=== PATIENT | male | born 1990 | race African-American/Black ===

== ENCOUNTER 2016-08-21 17:12 | Emergency (ER) | payer SELFPAY ==
[~2016-08-21] VITALS: Ht 170.2 cm; Wt 67.0 kg
[~2016-08-21 17:12] MED LIST: BACT800T5 PO; CEPH500C3 PO
[2016-08-21 17:13] VITALS: BP 129/65; PULSE 104; RESP 16; TEMP 98.2; O2SAT 99
[2016-08-21] MEDS ORDERED: PENI500T PO (17:36)
[2016-08-21] MEDS ORDERED: IBUP-232 PO (17:36)
--- NOTE | 2016-08-21 17:36 | PD ---
HPI Chief Complaint: Oral / Dental Pain or Problem Time Seen by Provider: 17:29 Travel History International Travel<30 days: No Contact w/Intl Traveler<30days: No Traveled to known affect area: No History of Present Illness HPI 25-year-old male complains of dental pain. Patient states that started having sharp pain vocalized upper gum for the past several days. Patient denies any fever chills. Patient denies any coughing congestion. PFSH Past Medical History ADHD: Yes Bipolar Disorder: Yes (IN HX FROM PREVIOUS VISIT; PT DENIES AT THIS TIME) Cancer: No Diabetes: No Diminished Hearing: No Musculoskeletal: Yes (Back pain ) Psychiatric: Yes (BIPOLAR) Immunizations Current: Yes Migraines: No Seizures: No Thyroid Disease: No Ulcer: No ?: Not Past Surgical History Appendectomy: No Cholecystectomy: No Social History Alcohol Use: Yes (Occasional ) Tobacco Use: Yes (1 PPD) Substance Use: No Allergies-Medications (Allergen,Severity, Reaction): Coded Allergies: No Known Allergies (Verified , 08/21/16) Reported Meds & Prescriptions Reported Meds & Active Scripts Active Keflex (Cephalexin Monohydrate) 500 Mg Cap 500 Mg PO QID Bactrim DS (Sulfamethoxazole-Trimethoprim DS) 1 Tab Tab 1 Tab PO BID 7 Days Review of Systems General / Constitutional: No: Fever Eyes: No: Visual changes HENT: No: Headaches Cardiovascular: No: Chest Pain or Discomfort Respiratory: No: Shortness of Breath Gastrointestinal: No: Abdominal Pain Genitourinary: No: Dysuria Musculoskeletal: No: Pain Skin: No Rash Neurologic: No: Weakness Psychiatric: No: Depression Endocrine: No: Polydipsia Hematologic/Lymphatic: No: Easy Bruising Physical Exam Narrative GENERAL: Well-nourished, well-developed patient. SKIN: Focused skin assessment warm/dry. HEAD: Normocephalic. EYES: No scleral icterus. No injection or drainage. NECK: Supple, trachea midline. No JVD or lymphadenopathy. CARDIOVASCULAR: Regular rate and rhythm without murmurs, gallops, or rubs. RESPIRATORY: Breath sounds equal bilaterally. No accessory muscle use. GASTROINTESTINAL: Abdomen soft, non-tender, nondistended. MUSCULOSKELETAL: No cyanosis, or edema. BACK: Nontender without obvious deformity. No CVA tenderness. Patient has 2 missing teeth on the upper gum area with tenderness on palpation of the gum. No soft tissue swelling noted. Data Data Last Documented VS Vital Signs Date Time Temp Pulse Resp B/P Pulse Ox O2 Delivery O2 Flow Rate FiO2 08/21/16 17:13 98.2 104 16 129/65 99 MDM Medical Decision Making Medical Screen Exam Complete: Yes Emergency Medical Condition: Yes Differential Diagnosis Differential diagnosis including dental pain, dental abscess. Narrative Course 25-year-old male with dental pain. Diagnosis Primary Impression: Pain, dental Patient Instructions: General Instructions Additional Instructions: Take medications as directed. Follow-up with a dentist. Med/Other Pt SpecificInfo: Prescription(s) given Scripts Ibuprofen 600 Mg [id number] Mg PO Q8H PRN (PAIN) #60 TAB Ref 0 Prov:Eliseo Londono MD 08/21/16 Penicillin V Potassium 500 Mg Pom229 Mg PO Q6H #40 TAB Ref 0 Prov:Eliseo Londono MD 08/21/16 Disposition: 01 DISCHARGE HOME Condition: Stable Eliseo Londono MD Aug 21, 2016 17:36
== END 2016-08-21 17:47 | disposition home or self-care (01) ==
LOC: PHEFT 17:12
DX: K08.89 Other specified disorders of teeth and supporting structures (principal)
CPT/HCPCS: 99283